=== PATIENT | male | born 1940 | race Caucasian/White ===

== ENCOUNTER 2019-03-16 18:56 | Emergency (ER) | payer MEDICARE, MEDICAID ==
[~2019-03-16] VITALS: Ht 180.3 cm; Wt 115.3 kg
--- NOTE | 2019-03-16 19:10 | NUR ---
PATIENT STATES THAT HE NEED TO TAKE THE RENTAL CAR BACK. PATIENT EDUCATED ABOUT CHECKING IN TO EMERGENCY ROOM AND WAS TOLD IF HE LEAVE THE HOSPITAL, WE NEED TO TAKE HIM OUT OF THE SYSTEM AND HE CAN COME BACK AND CHECK IN AGAIN. PATIENT WORRIED ABOUT THE FEE THAT HE IS GOING TO PAY RENTAL CAR AND DECIDED TO LEAVE.
[2019-03-16 20:14] VITALS: BP 136/78
[2019-03-16 20:30] LABS: MICROSCOPIC INDICATED
[2019-03-16 20:37] LABS: CULTURE INDICATED? YES
[2019-03-16 20:43] LABS: BASOPHILS # (AUTO) 0.04 x10^3/uL (0-0.1); BASOPHILS % (AUTO) 1 % (0-1); EOSINOPHILS # (AUTO) 0.11 x10^3/uL (0-0.4); EOSINOPHILS % (AUTO) 2 % (1-7); LYMPHOCYTES # (AUTO) 1.72 x10^3/uL (1-3.4); LYMPHOCYTES % (AUTO) 30 % (22-44); MD NO; MEAN CORPUSCULAR HEMOGLOBIN 30.6 pg (27.5-34.5); MEAN CORPUSCULAR HGB CONC 33.5 g/dL (33.2-36.2); MEAN CORPUSCULAR VOLUME 91.3 fL (81-97); MEAN PLATELET VOLUME 7.9 fL (7.4-10.4); MONOCYTES # (AUTO) 0.48 x10^3/uL (0.2-0.8); MONOCYTES % (AUTO) 9 % (2-9); NEUTROPHILS # (AUTO) 3.31 x10^3/uL (1.8-6.8); NEUTROPHILS % (AUTO) 59 % (42-75); PLATELET COUNT 200 x10^3/uL (130-400); RED BLOOD COUNT 5.13 x10^6/uL (4.38-5.82); RED CELL DISTRIBUTION WIDTH 15.3 % (9.4-14.8)
[2019-03-16 20:55] LABS: ANION GAP 8 mmol/L (5-15); CALCIUM 9.1 mg/dL (8.5-10.1); CHLORIDE 108 mmol/L (98-107); CREATININE 1.24 mg/dL (0.7-1.3)
[2019-03-16] MEDS ORDERED: CEFDINIR 300 MG CAPSULE PO ONE (21:00)
[2019-03-16] MEDS ORDERED: CEFDINIR 300 MG CAPSULE ONE (21:17)
== END 2019-03-16 21:33 | disposition home or self-care (01) ==
LOC: ED 21:06
DX: N30.00 Acute cystitis without hematuria (principal)
CPT/HCPCS: 36415; 80048; 81001; 85025; 87077; 87086; 87186; 99283

== ENCOUNTER 2019-03-22 10:30 | Emergency (ER) | payer MEDICARE, MEDICAID ==
[~2019-03-22] VITALS: Ht 180.3 cm; Wt 114.9 kg
[2019-03-22 10:34] VITALS: BP 159/108
--- NOTE | 2019-03-22 10:47 | NUR ---
PT STATES " THERE IS BLOOD BETWEEN MY LEGS, AND THINKS IT MAYBE HEMORHOIDS" PAIN WHEN URINATING. PT DOES NOT LOOK LIKE HE IS IN DISTRESS. PT WAS HERE RECENTLY FOR SAME COMPLAINT ON MONDAY. WILL WAIT FOR MD ORDERS
[2019-03-22 11:34] LABS: CULTURE INDICATED? YES; MICROSCOPIC AUTO
--- NOTE | 2019-03-22 11:42 | NUR ---
Patient given discharge instructions and they have confirmed that they understand the instructions. Patient ambulatory with steady gait.
== END 2019-03-22 11:56 | disposition home or self-care (01) ==
LOC: ED 11:29
DX: N30.01 Acute cystitis with hematuria (principal); K60.2 Anal fissure, unspecified
CPT/HCPCS: 81001; 87086; 99283